=== PATIENT | male | born 1945 | race Caucasian/White ===

== ENCOUNTER 2017-01-20 10:52 | Day surgery (SDC) | payer OTHER ==
--- NOTE | 2017-01-14 21:49 | HP ---
HISTORY AND PHYSICAL: DATE OF PLANNED ADMISSION AND SURGERY: 01/20/17 HISTORY OF PRESENT ILLNESS: Mr. Bruner is a 72-year-old white male who is admitted with a right ureteral calculus for cystoscopy, right ureteroscopy, laser lithotripsy, and right ureteral stent placement. I had been following Mr. Bruner for the last several years because of bladder outlet obstruction and prostate enlargement. He has been doing fine and has not needed to be on any medications for his condition. He presented to the emergency room in [place] about 3 months ago with symptoms of right renal colic and was noted on a noncontrast CT of the abdomen and pelvis to have a 4-mm calculus in the mid to lower portion of the right ureter associated with mild hydronephrosis. The patient was managed conservatively and had been followed in my office periodically with renal ultrasounds. He denied any episodes of gross hematuria or symptoms of prostatitis. Recent renal ultrasound in my office showed a 6 mm calculus at the Rt UVJ, minimal hydronephrosis. Considering the stone has been in the ureter for the last 3 months, it is unlikely for it to pass spontaneously and after discussing the options of management, decided to proceed with endoscopic stone extraction. PAST MEDICAL HISTORY AND SYSTEM REVIEW: He is diabetic, maintained on metformin 1 g twice a day and on Victoza 1.2 mg daily. He is hypertensive, on lisinopril 40 mg daily, amlodipine 10 mg daily, and hydrochlorothiazide 25 mg daily. He is on Crestor 5 mg daily for hyperlipidemia and on one baby aspirin. He denies any allergies to medications. He denies any cardiac or pulmonary diseases or symptoms. PHYSICAL EXAMINATION GENERAL: He is a pleasant and healthy-looking white male, who looks good for his age. VITAL SIGNS: Blood pressure 126/70, pulse of 70. HEART AND LUNGS: Exam of the heart and lungs is normal. ABDOMEN: Soft. No masses, no tenderness, and no CVA tenderness. RECTAL: Examination had shown a slightly enlarged, but nonsuspicious prostate. IMPRESSION: 1. 6-mm calculus in the distal right ureter, which has been in the ureter for the last 3 months with associated on and off episodes of mild right lower quadrant pain. 2. Hypertension, on treatment. 3. Diabetes mellitus, on treatment. PLAN: Considering the stone has been in the same position for the last 3 months , it is unlikely that it will pass spontaneously. The plan therefore is to proceed with a right ureteroscopy, laser lithotripsy, and right ureteral stent placement. I discussed the above plans in detail with the patient and all his questions were answered. [id number]/[facility] #: [id number] MTDD
[~2017-01-20 10:52] MED LIST: Buffered Lidocaine 0.9% SYRIN* 5 ML/SYR SYRINGE INTRADERM ONE; Dexamethasone IV* 4 MG/ML 1 ML (4 MG) IV SLOW PU ONE; Famotidine IV* 10 MG/ML 2 ML (20 mg) IV ONE
[2017-01-20] MEDS ORDERED: Buffered Lidocaine 0.9% SYRIN* 5 ML/SYR SYRINGE ONE (11:22)
[2017-01-20] MEDS ORDERED: cefTRIAXone(*) 2 GM ADDV.VIAL IVPB ONE (11:22)
[2017-01-20] MEDS ORDERED: Dexamethasone IV* 4 MG/ML 1 ML (4 MG) ONE (11:22)
[2017-01-20] MEDS ORDERED: Famotidine IV* 10 MG/ML 2 ML (20 mg) ONE (11:22)
[2017-01-20] MEDS ORDERED: Midazolam* 1 MG/ML 2 ML VIAL (2 MG) ONE (12:40)
[2017-01-20] MEDS ORDERED: fentaNYL* 50 MCG/ML 2 ML VIAL (100 MCG VIAL) ONE (12:41)
[2017-01-20] MEDS ORDERED: Iohexol 180 (CONTRAST) 10 ML SDV IV ONE (13:23)
[2017-01-20] MEDS ORDERED: PROCHLORPERAZINE INJ 5 MG/ML 2 ML VIAL IV PRN (13:23)
[2017-01-20] MEDS ORDERED: oxyCODONE/Acetamin 5/325 MG* TAB PO PRN (13:23)
[2017-01-20] MEDS ORDERED: fentaNYL* 50 MCG/ML 2 ML VIAL (100 MCG VIAL) IV PRN (13:23)
[2017-01-20] MEDS ORDERED: oxyCODONE TAB* 5 MG TAB PO PRN (13:23)
[2017-01-20] MEDS ORDERED: Ondansetron INJ* 2 MG/ML VIAL IV PRN (13:23)
[2017-01-20] MEDS ORDERED: HYDROmorphone INJ* 1 MG/ML CARPUJECT SYRINGE IV PRN (13:23)
[2017-01-20] MEDS ORDERED: Ibuprofen TAB* 600 MG PO PRN (13:23)
[2017-01-20] MEDS ORDERED: DiMENhydriNATE IV* 50 MG/ML VIAL IV PUSH PRN (13:23)
[2017-01-20] MEDS ORDERED: HYDROcodone/ACETAMIN 5-325 MG* 1 TAB PO PRN (13:23)
[2017-01-20] MEDS ORDERED: Ondansetron INJ* 2 MG/ML VIAL ONE (13:45)
[2017-01-20] MEDS ORDERED: Lidocaine 2% PF * 5 ML VIAL ONE (13:55)
[2017-01-20] MEDS ORDERED: Propofol* 10 MG/ML 20 ML BTL IV PUSH ONE (13:55)
[2017-01-20] MEDS ORDERED: Phenylephrine IV* 40 MCG/ML 10 ML SYRINGE ONE (13:55)
--- NOTE | 2017-01-20 14:57 | RAD ---
INDICATION: Right ureteral stone COMPARISONS: None relevant TECHNIQUE: Fluoroscopy was provided for a retrograde pyelogram. Total fluoroscopy time is: 3 seconds FINDINGS: Contrast is noted within the right renal collecting system. IMPRESSION: FLUOROSCOPY WAS PROVIDED FOR A RETROGRADE PYELOGRAM CPT II Codes: 6045F
[2017-01-20 15:18] VITALS: BP 156/75
--- NOTE | 2017-01-21 04:35 | OP ---
OPERATIVE REPORT: DATE OF OPERATION: 01/20/17 DATE OF : 47 SURGEON: Praful Sesay MD ANESTHESIOLOGIST: Dr. Vanessa Knott. ANESTHESIA: General. PRE-OP DIAGNOSES: Distal right ureteral calculus. POST-OP DIAGNOSES: Distal right ureteral calculus. OPERATIVE PROCEDURE: 1. Cystoscopy. 2. Right ureteroscopy and extraction of right ureteral calculus. 3. Right retrograde pyelography. INDICATIONS FOR PROCEDURE: Mr. Bruner is a 72-year-old white male, who presented 3 months ago with symptoms of right renal colic and was noted on a noncontrast CT to have a 4 to 5 mm proximal right ureteral calculus. The patient was followed conservatively and was having on and off episodes of mild right flank and right lower quadrant pain. Recent renal ultrasound showed a 6 mm calculus at the right ureterovesical junction with no associated hydronephrosis. Because of the length of time the stone has been in the ureter and after discussing the options of management, endoscopic stone extraction was advised and accepted. PATHOLOGY: At cystoscopy, the penile and bulbar urethrae looked normal. The prostatic urethra measured 2.5 cm in length and there was only moderate enlargement and obstruction. Examination of the bladder showed normal mucosa. There were no suspicious bladder lesions seen. There was slight edema of the right ureteral orifice. The calculus was seen pointing in and out at the level of the right orifice. Upon right ureteroscopy, there was moderate dilatation of the ureter. Retrograde pyelography showed no hydronephrosis. DESCRIPTION OF PROCEDURE: After successful general anesthesia, patient was placed in the lithotomy position and was prepped and draped for a cystoscopy. Cystoscopy was performed. The bladder was inspected and the above findings were noted. A flexible-tip guidewire was then introduced into the right orifice and positioned in the area of the renal pelvis. A size 6.5 semirigid ureteroscope was introduced inside the bladder. A flexible tip basket was introduced through the port of the ureteroscope and the flexible tip was introduced inside the right ureter allowing the atraumatic introduction of the ureteroscope into the ureter. The calculus was identified. It was felt it could be extracted without lasering it. The stone was engaged in the basket and was extracted with minimal difficulty and no trauma to the orifice. The stone was sent for chemical analysis. Retrograde pyelography was then performed. There was prompt drainage of contrast from the collecting system and the ureter. Because of that finding, no stent was placed. The patient tolerated the procedure well and left the operating room in good condition. [id number]/[facility] #: [id number] WARREN
== END 2017-01-20 15:20 | disposition home or self-care (01) ==
LOC: OR 10:52
PROVIDERS: ATTEND Urology
DX: N20.1 Calculus of ureter (principal); E11.40 Type 2 diabetes mellitus with diabetic neuropathy, unspecified; Z79.84 Long term (current) use of oral hypoglycemic drugs; E78.5 Hyperlipidemia, unspecified; I10 Essential (primary) hypertension; Z79.899 Other long term (current) drug therapy; N40.0 Benign prostatic hyperplasia without lower urinary tract symptoms
CPT/HCPCS: 74420; 82365; 88300; J0696; J1100; J2250; J2405; J2704; J3010